=== PATIENT | male | born 1985 | race Caucasian/White ===

== ENCOUNTER 2016-09-30 21:14 | Emergency (ER) | payer OTHER ==
[2016-09-30 21:19] VITALS: BP 139/81; PULSE 97; RESP 20; TEMP 98
--- NOTE | 2016-09-30 21:27 | ED ---
General Adult HPI - General Chief complaint: Extremity Injury, Upper Stated complaint: Right Hand Injury Time Seen by Provider: 09/30/16 21:20 Source: patient, RN notes reviewed Mode of arrival: ambulatory Limitations: no limitations - History of Present Illness Initial comments: This is a 31-year-old male presents with right hand pain 2 days. Patient states 2 days ago he punched a wall and is now having increased pain in the right knuckles and the right wrist. Patient is still able to make a fist but states it is painful. Patient denies any numbness/tingling or weakness. Patient denies any recent fever, chills, shortness breath, chest pain, abdominal pain, nausea/vomiting/diarrhea, back pain, hematuria, headache, or visual changes, or any other complaints. - Related Data Home Medications Medication Instructions Recorded Confirmed No Known Home Medications [No 09/30/16 09/30/16 Known Home Medications] Allergies Allergy/AdvReac Type Severity Reaction Status Date / Time morphine Allergy Anaphylaxis Verified 09/30/16 21:18 Review of Systems ROS Statement: Those systems with pertinent positive or pertinent negative responses have been documented in the HPI. ROS Other: All systems not noted in ROS Statement are negative. Past Medical History Past Medical History: No Reported History History of Any Multi-Drug Resistant Organisms: None Reported Past Surgical History: Adenoidectomy, Appendectomy, Tonsillectomy Past Psychological History: No Psychological Hx Reported Smoking Status: Current every day smoker Past Alcohol Use History: Occasional Past Drug Use History: None Reported General Exam - General Exam Comments Initial Comments: General: The patient is awake and alert, in no distress, and does not appear acutely ill. Neck: The neck is supple, there is no tenderness or JVD. Cardiovascular: There is a regular rate and rhythm. No murmur, rub or gallop is appreciated. Respiratory: Lungs are clear to auscultation, respirations are non-labored, breath sounds are equal. No wheezes, stridor, rales, or rhonchi. Musculoskeletal: There Is tenderness to palpation over the medial aspect of the right wrist on the dorsal side. There is also tenderness to palpation over the ulnar aspect of the right hand over the third fourth and fifth MCP joints and over the distal fifth metacarpal. There are small abrasions to the third fourth and fifth MCP joints. There is mild swelling over the third fourth and fifth MCP joints as well. No erythema, ecchymosis or sign of infection. Full range of motion, strength 5/5 and Sensation intact. Radial pulses 2+ bilaterally. Capillary refill is normal at less than 2 seconds. Neurological: A&O x 3. CN II-XII intact, There are no obvious motor or sensory deficits. Coordination appears grossly intact. Speech is normal. Skin: There are abrasions over the third fourth and fifth MCP joints of the dorsal aspect of the right hand. Skin is warm and dry and no rashes or lesions are noted. Psychiatric: Normal mood and affect. Limitations: no limitations Course Vital Signs 09/30/16 21:17 Temperature 98 F Pulse Rate 97 Respiratory 20 Rate Blood Pressure 139/81 O2 Sat by Pulse 97 Oximetry Medical Decision Making - Medical Decision Making This is a 31-year-old male who presents with right hand pain 2 days after punching a wall. On physical exam There Is tenderness to palpation over the medial aspect of the right wrist on the dorsal side. There is also tenderness to palpation over the ulnar aspect of the right hand over the third fourth and fifth MCP joints and over the distal fifth metacarpal. There are small abrasions to the third fourth and fifth MCP joints. There is mild swelling over the third fourth and fifth MCP joints as well. No erythema, ecchymosis or sign of infection. Full range of motion, strength 5/5 and Sensation intact. Radial pulses 2+ bilaterally. Capillary refill is normal at less than 2 seconds. An x-ray of the right hand and right wrist was done and reviewed showing:X-ray right wrist complete: Normal right wrist. X-ray right hand: Normal right hand. Report read by Dr. Quarles. Discussed results with patient. Discussed rest , ice, elevate and use Wallace wrap for compression. I discussed [id number] Tylenol or Motrin as for any pain. I discussed If symptoms do not improve in the next 7 days repeat x-rays may be needed to rule out occult fracture. I discussed return parameters. Discussed the patient should follow-up with his primary care physician in one to 2 days or return to the [facility] for any worsening symptoms or for any further concerns. Patient was receptive to this plan and patient will be discharged home. Disposition Clinical Impression: Hand contusion Disposition: HOME SELF-CARE Condition: Good Instructions: Hand Sprain (ED) Additional Instructions: Please rest, ice, elevate and use Wallace wrap for compression while up during the day. Please use [id number] Tylenol or Motrin as needed for any pain. If symptoms do not improve in the next 7 days repeat x-rays may be needed to rule out occult fracture. Please follow-up with family doctor in the next 2 days of symptoms have not improved. Please return to emergency room if the symptoms increase or worsen or for any other concerns. Time of Disposition: 22:00
--- NOTE | 2016-09-30 21:47 | XR ---
EXAMINATION TYPE: XR wrist complete RT DATE OF EXAM: 09/30/2016 9:42 PM COMPARISON: NONE HISTORY: Punching injury. Pain. TECHNIQUE: 4 views FINDINGS: I see no fracture nor dislocation. Joint spaces are normal. There are no pathologic calcifi cations. Metacarpals appear intact. IMPRESSION: Normal right wrist.
--- NOTE | 2016-09-30 21:48 | XR ---
EXAMINATION TYPE: XR hand complete RT DATE OF EXAM: 09/30/2016 9:42 PM COMPARISON: NONE HISTORY: Pain and injury TECHNIQUE: 3 views FINDINGS: Metacarpals are intact. I see no fracture nor dislocation. Joint spaces are normal. IMPRESSION: Normal right hand.
== END 2016-09-30 22:10 | disposition home or self-care (01) ==
LOC: EC 21:14
DX: S60.221A Contusion of right hand, initial encounter (principal); W22.01XA Walked into wall, initial encounter; F17.200 Nicotine dependence, unspecified, uncomplicated; Z88.5 Allergy status to narcotic agent
CPT/HCPCS: 99283

== ENCOUNTER 2017-11-18 22:16 | Emergency (ER) | payer BC, OTHER ==
[2017-11-18] MEDS ORDERED: SODIUM CHLORIDE 0.9% 1,000 ML IV STA (22:48)
--- NOTE | 2017-11-18 22:59 | ED ---
Syncope HPI - General Chief Complaint: Syncope Stated Complaint: Syncope Time Seen by Provider: 11/18/17 22:47 Source: patient, RN notes reviewed Mode of arrival: ambulatory Limitations: no limitations - History of Present Illness Initial Comments: This is a 32-year-old male who presents to the emergency department with chief complaint of syncope. Patient states that he had a syncopal episode approximately 30 minutes prior to arrival to the emergency department. Patient states he was standing in his kitchen and suddenly felt warm. He states that he does remember walking to the dining room and feeling like his vision went black. Family members at bedside state that she passed out in the dining room and was unconscious for approximately 30 seconds to a minute. They state that he fell backward and hit his head and walk on the dining room table. Patient states that when he came to he did feel sweaty and nauseous. Currently, patient denies any symptoms. Denies fevers or chills, abdominal pain, nausea or vomiting, diarrhea or constipation, headache or dizziness, numbness or tingling, dysuria or hematuria. Denies any previous episodes of syncope. Patient does admit to using marijuana but denies any other illicit drug use. Patient does state that last year he was told that he has high potassium and he was supposed to follow up with a primary care provider. Patient states that he failed to ever follow-up. Denies any other medical issues or medication use. - Related Data Home Medications Medication Instructions Recorded Confirmed No Known Home Medications [No 09/30/16 09/30/16 Known Home Medications] Allergies Allergy/AdvReac Type Severity Reaction Status Date / Time morphine Allergy Mild Anaphylaxis Verified 11/18/17 22:21 Review of Systems ROS Statement: Those systems with pertinent positive or pertinent negative responses have been documented in the HPI. ROS Other: All systems not noted in ROS Statement are negative. Past Medical History Past Medical History: No Reported History History of Any Multi-Drug Resistant Organisms: None Reported Past Surgical History: Adenoidectomy, Appendectomy, Hernia Repair, Tonsillectomy Past Psychological History: No Psychological Hx Reported Smoking Status: Current every day smoker Past Alcohol Use History: Occasional Past Drug Use History: Marijuana General Exam - General Exam Comments Initial Comments: General: Awake and alert, well-developed; in no apparent distress. HEENT: Head atraumatic, normocephalic. Pupils are equal, round and reactive to light. Extraocular movements intact. Oropharynx moist without erythema or exudate. Neck: Supple. Normal ROM. Cardiovascular: Regular rate and rhythm. No murmurs, rubs or gallops. Chest symmetrical. Radial, pedal and posterior tibial pulses are 2+ equal and palpable bilaterally. Respiratory: Lungs clear to auscultation bilaterally. No wheezes, rales or rhonchi. Normal respiratory effort with no use of accessory muscles. Abdomen: Soft, non-tender, non-distended. No rigidity, rebound or guarding. Normal bowel sounds in all 4 quadrants. Musculoskeletal: Normal ROM, no tenderness, strength 5/5 bilateral upper and lower extremities. Skin: [place], warm and dry without rashes or lesions. Neurological: Alert and oriented x3. CN II-XII grossly intact. Speech is fluent and answers are appropriate. No focal neuro deficits. Psychiatric: Normal mood and affect. No overt signs of depression or anxiety noted. Limitations: no limitations Course Vital Signs 11/18/17 22:19 Temperature 98.3 F Pulse Rate 78 Respiratory 20 Rate Blood Pressure 120/71 O2 Sat by Pulse 100 Oximetry EKG Findings - EKG Comments: EKG Findings:: 22:29:01. Normal sinus rhythm. Ventricular rate 82 bpm, ID interval 146, QRS duration 90, QT/QTC 362/422 Medical Decision Making - Medical Decision Making This is a 32-year-old male who presents to the emergency department with chief complaint of syncope. Patient had a syncopal episode prior to arrival. On presentation, patient denied any symptoms. Denied nausea or vomiting, dizziness or headache, chest pain or shortness of breath. Family members did state that patient fell backwards and hit his head and back on the dining room table. EKG revealed a normal sinus rhythm. Cardiac profile and troponins are negative. CBC, CMP, UA and coags are unremarkable. CT of the brain revealed no acute abnormalities. Orthostatics were obtained and are within normal limits. Drug screen was obtained and patient did test positive for THC. Patient's vital signs are stable and he is in no acute distress. Patient will be discharged home. Recommended follow-up with primary care provider within 1- 2 days. Patient is in agreement with plan and voices understanding. All questions were answered. - Lab Data Result diagrams: 11/18/17 23:06 11/18/17 23:06 Lab Results 11/18/17 11/18/17 11/18/17 Range/Units 23:06 23:06 23:06 WBC 11.5 H (3.8-10.6) k/uL RBC 4.69 (4.30-5.90) m/uL Hgb 14.7 (13.0-17.5) gm/dL Hct 43.8 (39.0-53.0) % MCV 93.5 (80.0-100.0) fL MCH 31.4 (25.0-35.0) pg MCHC 33.6 (31.0-37.0) g/dL RDW 13.2 (11.5-15.5) % Plt Count 298 (150-450) k/uL Neutrophils % 69 % Lymphocytes % 19 % Monocytes % 5 % Eosinophils % 5 % Basophils % 1 % Neutrophils # 8.0 H (1.3-7.7) k/uL Lymphocytes # 2.2 (1.0-4.8) k/uL Monocytes # 0.5 (0-1.0) k/uL Eosinophils # 0.6 (0-0.7) k/uL Basophils # 0.1 (0-0.2) k/uL PT (9.0-12.0) sec INR (<1.2) APTT (22.0-30.0) sec Sodium 141 (137-145) mmol/L Potassium 4.9 (3.5-5.1) mmol/L Chloride 102 (98-107) mmol/L Carbon Dioxide 27 (22-30) mmol/L Anion Gap 12 mmol/L BUN 15 (9-20) mg/dL Creatinine 0.70 (0.66-1.25) mg/dL Est GFR (CKD-EPI)AfAm >90 (>60 ml/min/1.73 sqM) Est GFR (CKD-EPI)NonAf >90 (>60 ml/min/1.73 sqM) Glucose 91 (74-99) mg/dL Calcium 9.6 (8.4-10.2) mg/dL Total Bilirubin 0.6 (0.2-1.3) mg/dL AST 33 (17-59) U/L ALT 46 (21-72) U/L Alkaline Phosphatase 89 (38-126) U/L Total Creatine Kinase 143 (55-170) U/L CK-MB (CK-2) 1.2 (0.0-2.4) ng/mL CK-MB (CK-2) Rel Index 0.8 Troponin I <0.012 (0.000-0.034) ng/mL Total Protein 7.0 (6.3-8.2) g/dL Albumin 4.3 (3.5-5.0) g/dL Urine Color Urine Appearance (Clear) Urine pH (5.0-8.0) Ur Specific [place] (1.001-1.035) Urine Protein (Negative) Urine Glucose (UA) (Negative) Urine Ketones (Negative) Urine Blood (Negative) Urine Nitrite (Negative) Urine Bilirubin (Negative) Urine Urobilinogen (<2.0) mg/dL Ur Leukocyte Esterase (Negative) Urine Opiates Screen (NotDetected) Ur Oxycodone Screen (NotDetected) Urine Methadone Screen (NotDetected) Ur Propoxyphene Screen (NotDetected) Ur Barbiturates Screen (NotDetected) U Tricyclic Antidepress (NotDetected) Ur Phencyclidine Scrn (NotDetected) Ur Amphetamines Screen (NotDetected) U Methamphetamines Scrn (NotDetected) U Benzodiazepines Scrn (NotDetected) Urine Cocaine Screen (NotDetected) U Marijuana (THC) Screen (NotDetected) 11/18/17 11/18/17 Range/Units 23:06 23:45 WBC (3.8-10.6) k/uL RBC (4.30-5.90) m/uL Hgb (13.0-17.5) gm/dL Hct (39.0-53.0) % MCV (80.0-100.0) fL MCH (25.0-35.0) pg MCHC (31.0-37.0) g/dL RDW (11.5-15.5) % Plt Count (150-450) k/uL Neutrophils % % Lymphocytes % % Monocytes % % Eosinophils % % Basophils % % Neutrophils # (1.3-7.7) k/uL Lymphocytes # (1.0-4.8) k/uL Monocytes # (0-1.0) k/uL Eosinophils # (0-0.7) k/uL Basophils # (0-0.2) k/uL PT 9.5 (9.0-12.0) sec INR 1.0 (<1.2) APTT 22.4 (22.0-30.0) sec Sodium (137-145) mmol/L Potassium (3.5-5.1) mmol/L Chloride (98-107) mmol/L Carbon Dioxide (22-30) mmol/L Anion Gap mmol/L BUN (9-20) mg/dL Creatinine (0.66-1.25) mg/dL Est GFR (CKD-EPI)AfAm (>60 ml/min/1.73 sqM) Est GFR (CKD-EPI)NonAf (>60 ml/min/1.73 sqM) Glucose (74-99) mg/dL Calcium (8.4-10.2) mg/dL Total Bilirubin (0.2-1.3) mg/dL AST (17-59) U/L ALT (21-72) U/L Alkaline Phosphatase (38-126) U/L Total Creatine Kinase (55-170) U/L CK-MB (CK-2) (0.0-2.4) ng/mL CK-MB (CK-2) Rel Index Troponin I (0.000-0.034) ng/mL Total Protein (6.3-8.2) g/dL Albumin (3.5-5.0) g/dL Urine Color Light Yellow Urine Appearance Clear (Clear) Urine pH 6.5 (5.0-8.0) Ur Specific [place] 1.006 (1.001-1.035) Urine Protein Negative (Negative) Urine Glucose (UA) Negative (Negative) Urine Ketones Negative (Negative) Urine Blood Negative (Negative) Urine Nitrite Negative (Negative) Urine Bilirubin Negative (Negative) Urine Urobilinogen <2.0 (<2.0) mg/dL Ur Leukocyte Esterase Negative (Negative) Urine Opiates Screen Not Detected (NotDetected) Ur Oxycodone Screen Not Detected (NotDetected) Urine Methadone Screen Not Detected (NotDetected) Ur Propoxyphene Screen Not Detected (NotDetected) Ur Barbiturates Screen Not Detected (NotDetected) U Tricyclic Antidepress Not Detected (NotDetected) Ur Phencyclidine Scrn Not Detected (NotDetected) Ur Amphetamines Screen Not Detected (NotDetected) U Methamphetamines Scrn Not Detected (NotDetected) U Benzodiazepines Scrn Not Detected (NotDetected) Urine Cocaine Screen Not Detected (NotDetected) U Marijuana (THC) Screen Detected H (NotDetected) - Radiology Data Radiology results: report reviewed Chest x-ray impression: Normal chest. CT brain without contrast findings: Ventricles and sulci appear normal. There is no mass effect nor midline shift. There is no sign of intracranial hemorrhage. The calvarium is intact. Conclusion: Normal computed tomography scan of the brain. Disposition Clinical Impression: Syncope Disposition: HOME SELF-CARE Condition: Good Instructions: Syncope (ED) Additional Instructions: Please follow up with primary care provider within 1-2 days. Return to emergency department if symptoms should worsen or any concerns arise. Referrals: Basil Sheridan MD [Primary Care Provider] - 1-2 days Time of Disposition: 00:21
--- NOTE | 2017-11-18 23:24 | XR ---
EXAMINATION TYPE: XR chest 2V DATE OF EXAM: 11/18/2017 COMPARISON: NONE HISTORY: Syncope TECHNIQUE: Frontal and lateral views of the chest are obtained. FINDINGS: Heart and mediastinum are normal. Lungs are clear. Diaphragm is normal. Bony thorax appear s normal. IMPRESSION: Normal chest
[2017-11-18 23:31] LABS: Basophils # (A) 0.1 k/uL (0-0.2); Basophils % (A) 1 %; Eosinophils # (A) 0.6 k/uL (0-0.7); Eosinophils % (A) 5 %; HCT 43.8 % (39.0-53.0); HGB 14.7 gm/dL (13.0-17.5); Lymphocytes # (A) 2.2 k/uL (1.0-4.8); Lymphocytes % (A) 19 %; MCH 31.4 pg (25.0-35.0); MCHC 33.6 g/dL (31.0-37.0); MCV 93.5 fL (80.0-100.0); Mean Platelet Volume 6.5; Monocytes # (A) 0.5 k/uL (0-1.0); Monocytes % (A) 5 %; Neutrophils % (A) 69 %; Platelet Count 298 k/uL (150-450); RBC 4.69 m/uL (4.30-5.90); RDW 13.2 % (11.5-15.5); WBC 11.5 k/uL (3.8-10.6)
[2017-11-18 23:35] LABS: Prothrombin Time 9.5 sec (9.0-12.0)
[2017-11-18 23:39] LABS: ALT 46 U/L (21-72); AST 33 U/L (17-59); Albumin 4.3 g/dL (3.5-5.0); Alkaline Phosphatase 89 U/L (38-126); Anion Gap 12 mmol/L; Blood Urea Nitrogen 15 mg/dL (9-20); Calcium 9.6 mg/dL (8.4-10.2); Carbon Dioxide 27 mmol/L (22-30); Chloride 102 mmol/L (98-107); Glucose 91 mg/dL (74-99); Potassium 4.9 mmol/L (3.5-5.1); Sodium 141 mmol/L (137-145); Total Bilirubin 0.6 mg/dL (0.2-1.3)
[2017-11-18 23:42] LABS: Partial Thromboplastin Time 22.4 sec (22.0-30.0)
[2017-11-18 23:47] LABS: Creatine Kinase 143 U/L (55-170)
--- NOTE | 2017-11-18 23:48 | CT ---
EXAMINATION TYPE: CT brain wo con DATE OF EXAM: 11/18/2017 COMPARISON: NONE HISTORY: No prior, syncope CT DLP: 1047.10 mGycm. Automated Exposure Control for Dose Reduction was Utilized. TECHNIQUE: CT scan of the head is performed without contrast. FINDINGS: Ventricles and sulci appear normal. There is no mass effect nor midline shift. There is n o sign of intracranial hemorrhage. The calvarium is intact. Conclusion normal CT scan of the brain.
[2017-11-18 23:59] LABS: Creatine Kinase MB 1.2 ng/mL (0.0-2.4); Troponin I <0.012 ng/mL (0.000-0.034)
[2017-11-19 00:03] LABS: Appearance,Urine Clear (Clear); Bilirubin,Urine Negative (Negative); Blood,Urine Negative (Negative); Color,Urine Light Yellow; Glucose,Urine (UA) Negative (Negative); Ketones,Urine Negative (Negative); Leukocyte Esterase,Urine Negative (Negative); Nitrite,Urine Negative (Negative); PH, Urine 6.5 (5.0-8.0); Protein,Urine Negative (Negative); Specific Gravity,Urine 1.006 (1.001-1.035); Urobilinogen,Urine <2.0 mg/dL (<2.0)
[2017-11-19 00:18] LABS: Amphetamine Screen,Urine Not Detected (NotDetected); Barbiturate Screen,Urine Not Detected (NotDetected); Benzodiazepines Screen,Urine Not Detected (NotDetected); Cocaine Screen,Urine Not Detected (NotDetected); Methadone Screen, Urine Not Detected (NotDetected); Opiate Screen,Urine Not Detected (NotDetected); Oxycodone Screen, Urine Not Detected (NotDetected); Phencyclidine Screen,Urine Not Detected (NotDetected); Tricyclic Antidepressant,Urine Not Detected (NotDetected); Urn Cannabinoid Scrn Detected (NotDetected)
[2017-11-19 00:20] VITALS: BP 117/60; PULSE 74; RESP 18; TEMP 97.6
== END 2017-11-19 00:32 | disposition home or self-care (01) ==
LOC: EC 22:16
DX: R55 Syncope and collapse (principal); R11.0 Nausea; F17.200 Nicotine dependence, unspecified, uncomplicated; Z88.5 Allergy status to narcotic agent
CPT/HCPCS: 36415; 70450; 71046; 80053; 80306; 81003; 82550; 82553; 84484; 85025; 85610; 85730; 93005; 96360; 99284

== ENCOUNTER → 2019-03-22 | Outpatient (CLI) | payer OTHER ==
--- NOTE | 2019-03-22 12:57 | MR ---
EXAMINATION TYPE: MR brain wo con DATE OF EXAM: 03/22/2019 COMPARISON: CT brain dated 11/18/2017 HISTORY: Syncope TECHNIQUE: Multiplanar, multisequence images of the brain and brainstem is performed without IV contrast. FINDINGS: Diffusion weighted images demonstrate no evidence of a recent infarct or other diffusion ab normality. There is no extra-axial fluid collection or significant white matter signal abnormality. The ventricular system and cisternal spaces are normal in size and appearance. The brain volume is age appropriate. Prominent dural venous incidentally noted along the right temporal lobe on T2 axial fat sat image 11. No associated T2/FLAIR signal abnormality is seen that would be more typical of an arterial venous malformation. This appears to communicate with the venous system at 2 locations. Ther efore this is favored to represent a developmental venous anomaly. Midline structures demonstrate normal morphology. The craniocervical junction appears within normal limits. The paranasal sinuses demonstrate scant mucosal thickening in the right frontal and ethmoid s inuses as well as within the right maxillary sinus. Remaining paranasal sinuses and mastoid air cells are clear and the globes are intact. IMPRESSION: 1. No acute infarct, midline shift or mass effect. No significant white matter change. 2. Incidentally noted right temporal vascular anomaly favored to represent a venous anomaly although contrast could be utilized to assess for arterial venous malformation.
== END | disposition home or self-care (01) ==
LOC: RADMRIMAIN 11:51
PROVIDERS: ATTEND Pediatrics
DX: R55 Syncope and collapse (principal)
CPT/HCPCS: 70551

== ENCOUNTER → 2019-04-15 | Outpatient (CLI) | payer OTHER ==
--- NOTE | 2019-04-17 08:32 | ECHOF ---
Referral Reason:[id number] Syncope MEASUREMENTS -------- HEIGHT: 185.4 cm WEIGHT: 95.7 kg BP: RVIDd: 2.8 cm (< 3.3) IVSd: 1.1 cm (0.6 - 1.1) LVIDd: 4.3 cm (3.9 - 5.3) LVPWd: 1.2 cm (0.6 - 1.1) IVSs: 1.4 cm LVIDs: 3.2 cm LVPWs: 1.6 cm LA Diam: 3.6 cm (2.7 - 3.8) LAESV Index (A-L): 21.91 ml/m Ao Diam: 3.0 cm (2.0 - 3.7) AV Cusp: 2.5 cm (1.5 - 2.6) EPSS: 0.4 cm MV E Efrain: 0.88 m/s MV DecT: 171 ms MV A Efrain: 0.57 m/s MV E/A Ratio: 1.53 RAP: 5.00 mmHg RVSP: 20.45 mmHg MV EF SLOPE: 149.47 mm/s (70 - 150) MV EXCURSION: 1.94 cm (> 18.000) FINDINGS -------- Sinus rhythm. This was a technically good study. The left ventricular size is normal. There is borderline concentric left ventricular hypertrophy. Overall left ventricular systolic function is normal with, an EF between 60 - 65 %. The right ventricle is normal in size. Left atrium is normal size by volume. The right atrium is normal in size and function. The aortic valve is trileaflet and appears structurally normal. There is trace to mild mitral regurgitation. Mild tricuspid regurgitation present. Right ventricular systolic pressure is normal at < 35 mmHg. There is no pulmonic regurgitation present. The aortic root size is normal. Normal inferior vena cava with normal inspiratory collapse consistent with estimated right atrial pre ssure of 5 mmHg. There is no pericardial effusion. CONCLUSIONS -------- 1. Sinus rhythm. 2. This was a technically good study. 3. The left ventricular size is normal. 4. There is borderline concentric left ventricular hypertrophy. 5. Overall left ventricular systolic function is normal with, an EF between 60 - 65 %. 6. The right ventricle is normal in size. 7. Left atrium is normal size by volume. 8. The right atrium is normal in size and function. 9. The aortic valve is trileaflet and appears structurally normal. 10. There is trace to mild mitral regurgitation. 11. Mild tricuspid regurgitation present. 12. Right ventricular systolic pressure is normal at < 35 mmHg. 13. There is no pulmonic regurgitation present. 14. The aortic root size is normal. 15. Normal inferior vena cava with normal inspiratory collapse consistent with estimated right atrial pressure of 5 mmHg. 16. There is no pericardial effusion. MAJOR CASE DETECTIVE: Naomi Finley RDCS
== END | disposition home or self-care (01) ==
LOC: RADECHMAIN 12:36
PROVIDERS: ATTEND Pediatrics
DX: I08.1 Rheumatic disorders of both mitral and tricuspid valves (principal)
CPT/HCPCS: 93306

== ENCOUNTER → 2019-04-24 | Outpatient (CLI) | payer OTHER ==
--- NOTE | 2019-04-25 00:31 | MR ---
EXAMINATION TYPE: MR brain wo/w con DATE OF EXAM: 04/24/2019 COMPARISON: March 22, 2019 HISTORY: Abnormal brain mri in 2018. Contrast was recommended. TECHNIQUE: Multiplanar, multisequence images of the brain and brainstem is performed without and with IV contras t, utilizing 10 mL intravenous Gadavist . FINDINGS: Ventricles of normal size. There is no mass effect nor midline shift. There is no sign of i ntracranial hemorrhage. There is no evidence of cortical infarct. There is some mucosal thickening in the ethmoid and frontal sinuses. There is minimal right maxillary sinus mucosal thickening. Corpus c allosum appears normal. Brainstem is intact. There is no evidence of cerebral edema. Contrast images show normal opacification of the venous sinuses. There is no pathologic enhancement. There is normal enhancement of the anterior middle and posterior cerebral arteries. There is no evide nce of vascular malformation. IMPRESSION: There is minimal sinusitis unchanged compared to old exam. Otherwise negative exam. No ev idence of vascular malformation.
== END | disposition home or self-care (01) ==
LOC: RADMRIMAIN 19:56
PROVIDERS: ATTEND Physician Assistant
DX: R93.0 Abnormal findings on diagnostic imaging of skull and head, not elsewhere classified (principal)
CPT/HCPCS: 70553; A9585

== ENCOUNTER 2020-04-28 19:35 | Emergency (ER) | payer OTHER ==
[2020-04-28 19:43] VITALS: BP 152/94; PULSE 77; TEMP 98.6
[2020-04-28] MEDS ORDERED: KETOROLAC 15 MG/ML 1 ML VIAL IM STA (20:03)
--- NOTE | 2020-04-28 21:18 | XR ---
EXAMINATION TYPE: XR lumbosacral spine min 4V DATE OF EXAM: 04/28/2020 COMPARISON: None HISTORY: Pain after falling out of pickup truck TECHNIQUE: Five-view lumbar spine FINDINGS: There 5 lumbar-type vertebral bodies. The pedicles are intact. Disc heights are preserved. Vertebral body heights are preserved. No spondylolytic defects are evident. IMPRESSION: 1. Normal 5 view lumbar spine.
[2020-04-28] MEDS ORDERED: ACET/COD 300 MG/30 MG STARTER PACK 6 TAB BTL PO STA (21:36)
[2020-04-28] MEDS ORDERED: ONDANSETRON 4 MG ODT STARTER PACK 2 TAB BTL PO STA (21:36)
--- NOTE | 2020-04-28 21:36 | ED ---
General Adult HPI - General Chief complaint: Back Pain/Injury Stated complaint: Back Injury Time Seen by Provider: 04/28/20 19:47 Source: patient, RN notes reviewed Mode of arrival: ambulatory Limitations: no limitations - History of Present Illness Initial comments: 35-year-old male without any significant past medical history presents to the emergency room for a chief complaint of back pain. Patient reports that yesterday he was unloading wood from his truck when he fell backwards onto his low back. Patient states he is having pain on the lower right side of the back. Denies upper back pain. Patient states he does hit his head but it was not hard and he did not lose consciousness. He does not take blood thinners. He has not had a headache or neck pain. Patient states movement makes the pain worse in his back. States he took Motrin and it did not help. Denies bladder or bowel changes, numbness or tingling in the saddle region, or weakness of the lower extremities. Denies any difficulty ambulating.Patient has no other complaints at this time including shortness of breath, chest pain, abdominal pain, nausea or vomiting, headache, or visual changes. - Related Data Home Medications Medication Instructions Recorded Confirmed No Known Home Medications 09/30/16 09/30/16 Allergies Allergy/AdvReac Type Severity Reaction Status Date / Time morphine Allergy Mild Anaphylaxis Verified 04/28/20 19:42 Review of Systems ROS Statement: Those systems with pertinent positive or pertinent negative responses have been documented in the HPI. ROS Other: All systems not noted in ROS Statement are negative. Past Medical History Past Medical History: No Reported History History of Any Multi-Drug Resistant Organisms: None Reported Past Surgical History: Adenoidectomy, Appendectomy, Hernia Repair, Tonsillectomy Past Psychological History: No Psychological Hx Reported Smoking Status: Current every day smoker Past Alcohol Use History: Occasional Past Drug Use History: Marijuana General Exam Limitations: no limitations General appearance: alert, in no apparent distress Head exam: Present: atraumatic, normocephalic, normal inspection Eye exam: Present: normal appearance, PERRL, EOMI. Absent: scleral icterus, conjunctival injection, periorbital swelling ENT exam: Present: normal exam, mucous membranes moist Neck exam: Present: normal inspection. Absent: tenderness, meningismus, lymphadenopathy Respiratory exam: Present: normal lung sounds bilaterally. Absent: respiratory distress, wheezes, rales, rhonchi, stridor Cardiovascular Exam: Present: regular rate, normal rhythm, normal heart sounds. Absent: systolic murmur, diastolic murmur, rubs, gallop, clicks GI/Abdominal exam: Present: soft, normal bowel sounds. Absent: distended, tenderness, guarding, rebound, rigid Back exam: Present: vertebral tenderness (Patient has generalized lumbar spine tenderness. No significant bruising is noted to the lumbar spine. He does have some bruising noted to the left low back however no bruising noted to the right low back.). Absent: CVA tenderness (R), CVA tenderness (L) Neurological exam: Present: normal gait Course Vital Signs 04/28/20 04/28/20 19:40 21:40 Temperature 98.6 F Pulse Rate 77 Respiratory 17 16 Rate Blood Pressure 152/94 O2 Sat by Pulse 98 Oximetry Medical Decision Making - Medical Decision Making X-ray is negative of the lumbar spine. Patient was given Toradol here in the emergency room. At this time patient can be discharged home with Motrin and Tylenol 3. Discussed no driving or operating machinery while taking Tylenol 3. He was given Zofran with this for possible nausea. He will return for any worsening symptoms. He was given follow-up to a physician. Disposition Clinical Impression: Mechanical back pain Disposition: HOME SELF-CARE Condition: Good Instructions (If sedation given, give patient instructions): Acute Low Back Pa in (ED) Additional Instructions: Please alternate Motrin and Tylenol for pain every 3 hours. If pain is severe take Tylenol 3. Follow up with your doctor. Return for any worsening symptoms such as bladder or bowel changes, numbness or tingling in your legs, weakness in the legs, or fevers. Is patient prescribed a controlled substance at d/c from ED?: No Referrals: Ivon Liriano MD [REFERRING] - 1-2 days Time of Disposition: 21:35
[2020-04-28 21:45] VITALS: RESP 16
== END 2020-04-28 21:40 | disposition home or self-care (01) ==
LOC: EC 19:35
DX: S39.92XA Unspecified injury of lower back, initial encounter (principal); M54.5 Low back pain; F17.200 Nicotine dependence, unspecified, uncomplicated; Z88.5 Allergy status to narcotic agent; W18.00XA Striking against unspecified object with subsequent fall, initial encounter
CPT/HCPCS: 99283 ×2; 96372 ×2; 72110; J1885; S0119

== ENCOUNTER 2021-06-14 12:42 | Emergency (ER) | payer OTHER ==
[2021-06-14 14:45] VITALS: TEMP 97.6
--- NOTE | 2021-06-14 14:45 | ED ---
General Adult HPI - General Source: patient <Baljinder Nicole - Last Filed: 06/14/21 14:42> <Domingo Slater - Last Filed: 06/14/21 16:53> - General Chief complaint: Back Pain/Injury Stated complaint: back pain Time Seen by Provider: 06/14/21 15:58 - History of Present Illness Initial comments: Patient seen for advanced triage purposes: 36-year-old male presents to the emergency room for a chief complaint of back pain. Patient states the pain is lower in his back. Patient states it worsens when he stands or when he sits. Patient states lying down alleviates the pain. Patient states he felt his back "the other day when he got up and has been hurting ever since. (Baljinder Nicole) This is a well-appearing 36-year-old male that presents to the emergency room with low back pain. Patient states that he was getting out of bed Monday when he felt a pop in his lower back. He states he did not do any didn't injure himself. He has not had this type of pain in the past. He states that the pain shoots down his left leg. He is a half pack a day smoker. Does have a history of appendectomy and hernia repair surgery. He denies any saddle anesthesia. Denies any fevers nausea or vomiting or diarrhea. Denies any drug use. (Domingo Slater) - Related Data Previous Rx's Medication Instructions Recorded Cyclobenzaprine [Flexeril] 10 mg PO TID PRN #15 tab 06/14/21 Ibuprofen [Motrin] 600 mg PO Q8HR PRN #30 tab 06/14/21 Lidocaine 5% Patch [Lidoderm] 1 patch TOPICAL DAILY 10 Days #10 06/14/21 patch Allergies Allergy/AdvReac Type Severity Reaction Status Date / Time morphine Allergy Mild Anaphylaxis Verified 06/14/21 14:43 Review of Systems ROS Other: All systems not noted in ROS Statement are negative. <Baljinder Nicole - Last Filed: 06/14/21 14:42> ROS Other: All systems not noted in ROS Statement are negative. <Domingo Slater - Last Filed: 06/14/21 16:53> ROS Statement: Those systems with pertinent positive or pertinent negative responses have been documented in the HPI. Past Medical History Past Medical History: No Reported History History of Any Multi-Drug Resistant Organisms: None Reported Past Surgical History: Adenoidectomy, Appendectomy, Hernia Repair, Tonsillectomy Past Psychological History: No Psychological Hx Reported Smoking Status: Current every day smoker Past Alcohol Use History: Occasional Past Drug Use History: Marijuana <BonnieBaljinder P - Last Filed: 06/14/21 14:42> General Exam General appearance: alert, in no apparent distress Head exam: Present: atraumatic Neurological exam: Present: alert <BonnieBaljinder P - Last Filed: 06/14/21 14:42> General appearance: alert, in no apparent distress Eye exam: Present: normal appearance, PERRL, EOMI. Absent: scleral icterus, conjunctival injection, periorbital swelling Neck exam: Present: normal inspection, full ROM. Absent: tenderness, meningismus, lymphadenopathy Respiratory exam: Present: normal lung sounds bilaterally, other (coarse). Absent: respiratory distress, wheezes, stridor, chest wall tenderness, accessory muscle use Cardiovascular Exam: Present: regular rate, normal rhythm, normal heart sounds. Absent: systolic murmur, diastolic murmur, rubs, gallop, clicks GI/Abdominal exam: Present: soft, normal bowel sounds. Absent: distended, tenderness, guarding, rebound, rigid Extremities exam: Present: normal inspection, full ROM, normal capillary refill. Absent: tenderness, pedal edema, joint swelling, calf tenderness Back exam: Present: normal inspection, full ROM, tenderness (Lumbar spine), paraspinal tenderness. Absent: CVA tenderness (R), CVA tenderness (L), vertebral tenderness, rash noted Expanded Back exam: Absent: saddle anesthesia Back exam: Positive Straight Leg Raise: Left, Negative Straight Leg Raising: Right Neurological exam: Present: alert, oriented X3 Psychiatric exam: Present: normal affect, normal mood Skin exam: Present: warm, dry, intact, normal color. Absent: rash <Domingo Slater - Last Filed: 06/14/21 16:53> Course Vital Signs 06/14/21 06/14/21 14:43 15:08 Temperature 97.6 F Pulse Rate 75 73 Respiratory 18 20 Rate Blood Pressure 103/62 124/63 O2 Sat by Pulse 99 99 Oximetry Medical Decision Making <Domingo Slater - Last Filed: 06/14/21 16:53> - Medical Decision Making Patient states that he starting to feel better and he wants to go home. He has no focal neurological deficits. This pain is not as a result of an injury. He has no focal neurological deficits. He does not have any fevers or history of steroid use. He is a smoker but he denies any alcohol or intravenous drug use. He has no history of cancer. He was discharged home with Flexeril, Motrin and Lidoderm patches and return to the emergency room with any new or worsening symptoms. Case discussed with Dr. Markham was agreeable to this plan of care. (Domingo Slater) Disposition <Baljinder Nicole - Last Filed: 06/14/21 14:42> Is patient prescribed a controlled substance at d/c from ED?: No Time of Disposition: 16:49 <Domingo Slater - Last Filed: 06/14/21 16:53> Clinical Impression: Back pain Disposition: HOME SELF-CARE Condition: Good Instructions (If sedation given, give patient instructions): Acute Low Back Pain (ED) Additional Instructions: Take Motrin and Flexeril as needed for pain and follow-up with your primary care doctor in 1 week. Return to the emergency room with any new or worsening symptoms including incontinence of bowel or bladder or numbness on one side. Prescriptions: Cyclobenzaprine [Flexeril] 10 mg PO TID PRN #15 tab PRN Reason: Muscle Spasm Lidocaine 5% Patch [Lidoderm] 1 patch TOPICAL DAILY 10 Days #10 patch Ibuprofen [Motrin] 600 mg PO Q8HR PRN #30 tab PRN Reason: Pain Referrals: Ivon Liriano MD [Primary Care Provider] - 1-2 days
[2021-06-14 15:10] VITALS: BP 124/63; PULSE 73; RESP 20
[2021-06-14] MEDS ORDERED: ORPHENADRINE 30 MG/ML 2 ML VIAL IM STA (16:04)
[2021-06-14] MEDS ORDERED: HYDROcodone/APAP 5-325MG 1 EACH TAB PO STA (16:04)
== END 2021-06-14 17:06 | disposition home or self-care (01) ==
LOC: EC 12:42
DX: M54.50 Low back pain, unspecified (principal); F17.200 Nicotine dependence, unspecified, uncomplicated; Z88.5 Allergy status to narcotic agent; X58.XXXA Exposure to other specified factors, initial encounter
CPT/HCPCS: 96372 ×2; 99283 ×2; J2360

== ENCOUNTER 2022-05-08 18:54 | Emergency (ER) | payer OTHER ==
[2022-05-08 19:16] VITALS: RESP 16; TEMP 98.1
[2022-05-08] MEDS ORDERED: METOCLOPRAMIDE 5 MG/ML 2 ML VIAL IM STA (20:03)
[2022-05-08] MEDS ORDERED: diphenhydrAMINE 50 MG/ML 1 ML VIAL IM STA (20:04)
[2022-05-08] MEDS ORDERED: KETOROLAC 15 MG/ML 1 ML VIAL IM STA (20:04)
--- NOTE | 2022-05-08 20:10 | ED ---
Headache HPI - General Chief Complaint: Headache Stated Complaint: migrane Time Seen by Provider: 05/08/22 20:00 Source: RN notes reviewed Mode of arrival: ambulatory Limitations: no limitations - History of Present Illness Initial Comments: Patient presents with what he is referring to is a migraine headache which isn't present for 2 days. Patient does get headaches but has not had a bad one about one year. This is consistent with what is felt previously. Describes a throbbing headache across his forehead. He states it started 2 days ago and was quite mild at that time. Patient has tried [id number] medications with no relief. No fever. No neck stiffness. No paresthesias. No vision complaints. Has had some nausea with no vomiting. No upper respiratory symptoms. no fever or chills, no changes in vision or hearing, no sore throat or difficulty with speech, no neck pain, no chest pain or shortness of breath, no abdominal pain, no nausea or vomiting, no changes in urination or bowel movements, no numbness or tingling, no extremity pain, no skin rashes or lesions. Past medical, surgical, social, and family history reviewed. MD Complaint: headache - Related Data Previous Rx's Medication Instructions Recorded Cyclobenzaprine [Flexeril] 10 mg PO TID PRN #15 tab 06/14/21 Ibuprofen [Motrin] 600 mg PO Q8HR PRN #30 tab 06/14/21 Lidocaine 5% Patch [Lidoderm] 1 patch TOPICAL DAILY 10 Days #10 06/14/21 patch Allergies Allergy/AdvReac Type Severity Reaction Status Date / Time morphine Allergy Mild Anaphylaxis Verified 06/14/21 14:43 codeine Allergy Unknown Verified 05/08/22 19:16 Review of Systems ROS Statement: Those systems with pertinent positive or pertinent negative responses have been documented in the HPI. ROS Other: All systems not noted in ROS Statement are negative. Past Medical History Past Medical History: No Reported History History of Any Multi-Drug Resistant Organisms: None Reported Past Surgical History: Adenoidectomy, Appendectomy, Hernia Repair, Tonsillectomy Past Psychological History: No Psychological Hx Reported Smoking Status: Current every day smoker Past Alcohol Use History: Occasional Past Drug Use History: Marijuana General Exam Limitations: no limitations General appearance: alert, in no apparent distress Head exam: Present: atraumatic, normocephalic, normal inspection Eye exam: Present: normal appearance, PERRL, EOMI. Absent: scleral icterus, conjunctival injection, periorbital swelling ENT exam: Present: normal exam, mucous membranes moist Neck exam: Present: normal inspection. Absent: tenderness, meningismus, lymphadenopathy Respiratory exam: Present: normal lung sounds bilaterally. Absent: respiratory distress, wheezes, rales, rhonchi, stridor Cardiovascular Exam: Present: regular rate, normal rhythm, normal heart sounds. Absent: systolic murmur, diastolic murmur, rubs, gallop, clicks GI/Abdominal exam: Present: soft, normal bowel sounds. Absent: distended, tenderness, guarding, rebound, rigid Extremities exam: Present: normal inspection, full ROM, normal capillary refill. Absent: tenderness, pedal edema, joint swelling, calf tenderness Back exam: Present: normal inspection Neurological exam: Present: alert, oriented X3, CN II-XII intact Psychiatric exam: Present: normal affect, normal mood Skin exam: Present: warm, dry, intact, normal color. Absent: rash Course Vital Signs 05/08/22 19:14 Temperature 98.1 F Pulse Rate 72 Respiratory 16 Rate Blood Pressure 127/70 O2 Sat by Pulse 95 Oximetry - Reevaluation(s) Reevaluation #1: 05/08/22 22:39 Medical record is reviewed Symptoms are improved here in the emergency department Patient is informed of results and questions answered Patient in no distress Medical Decision Making - Medical Decision Making Patient improved at discharge. No evidence of neurological impairment or nuchal rigidity. Does not appear to be consistent with infectious process. This headache is consistent with what the patient has experienced in the past. Patient requesting a note for work today. Patient was much improved at the time of discharge. Patient was told to return to the ER for any signs or symptoms worsen. Told to return immediately if any other problems arise. All questions answered. Treatment plan discussed. Patient in agreement Every effort has been made to ensure accuracy of this dictation. However, due to the limitations of electronic medical records and dictation devices, errors in charting still occur. [employer] Picture [employer] Worker Dr. Santana Disposition Clinical Impression: Acute headache Disposition: HOME SELF-CARE Condition: Good Instructions (If sedation given, give patient instructions): Acute Headache (ED) Additional Instructions: Follow-up with your regular physician as directed. Return to the ER immediately if any symptoms worsen, new symptoms arise, or any other problems develop. Is patient prescribed a controlled substance at d/c from ED?: No Referrals: Ivon Liriano MD [REFERRING] - 1-2 days Time of Disposition: 22:39
[2022-05-08 22:57] VITALS: BP 120/78; PULSE 88
== END 2022-05-08 22:56 | disposition home or self-care (01) ==
LOC: EC 18:54
DX: R51.9 Headache, unspecified (principal); F17.200 Nicotine dependence, unspecified, uncomplicated; Z88.5 Allergy status to narcotic agent
CPT/HCPCS: 99283; 96372; J1200; J2765; J1885

== ENCOUNTER 2022-09-20 17:10 | Emergency (ER) | payer OTHER ==
[2022-09-20 17:58] VITALS: RESP 16; TEMP 96.8
[2022-09-20] MEDS ORDERED: KETOROLAC 15 MG/ML 1 ML VIAL IM STA (19:50)
[2022-09-20] MEDS ORDERED: LIDOCAINE 5% PATCH TOPICAL SCH (19:50)
--- NOTE | 2022-09-20 20:15 | ED ---
Fall HPI - General Chief Complaint: Fall Stated Complaint: post fall - back pain Time Seen by Provider: 09/20/22 19:46 Source: patient, RN notes reviewed Mode of arrival: ambulatory - History of Present Illness Initial Comments: This is a 37-year-old male who presents to the emergency department for abdominal and back pain. States that a week ago, he fell from an 8 foot ladder after slipping off of the top step. He went to [facility] and had a computed tomography scan. He was told that he had bruised ribs and otherwise no acute irregularities. He was given a prescription for Norflex, which he states has not offered any improvement to his symptoms. States that he is scheduled to return to work tomorrow, but does not believe that he can handle that due to the pain. Denies any fevers, chills, sore throat, cough, dyspnea, chest pain, palpitations, nausea, vomiting, diarrhea, or headaches. MD Complaint: fall Onset/Timin -: week(s) Fall From: standing Context: tripped/slipped - Related Data Previous Rx's Medication Instructions Recorded Cyclobenzaprine [Flexeril] 10 mg PO TID PRN #15 tab 06/14/21 Ibuprofen [Motrin] 600 mg PO Q8HR PRN #30 tab 06/14/21 Lidocaine 5% Patch [Lidoderm] 1 patch TOPICAL DAILY 10 Days #10 06/14/21 patch HYDROcodone/APAP 5-325MG [[place] 1 tab PO Q6HR PRN 3 Days #12 tab 09/20/22 5-325] Ketorolac [Toradol] 10 mg PO Q6HR PRN #12 tab 09/20/22 Lidocaine 5% Patch [Lidoderm] 1 patch TOPICAL DAILY PRN #30 patch 09/20/22 Allergies Allergy/AdvReac Type Severity Reaction Status Date / Time morphine Allergy Mild Anaphylaxis Verified 09/20/22 17:58 codeine Allergy Unknown Verified 09/20/22 17:58 Review of Systems ROS Statement: Those systems with pertinent positive or pertinent negative responses have been documented in the HPI. ROS Other: All systems not noted in ROS Statement are negative. Past Medical History Past Medical History: No Reported History History of Any Multi-Drug Resistant Organisms: None Reported Past Surgical History: Adenoidectomy, Appendectomy, Hernia Repair, Tonsillectomy Past Psychological History: No Psychological Hx Reported Smoking Status: Current every day smoker Past Alcohol Use History: Occasional Past Drug Use History: Marijuana General Exam Limitations: no limitations General appearance: alert, in distress Head exam: Present: atraumatic, normocephalic, normal inspection Respiratory exam: Present: normal lung sounds bilaterally. Absent: respiratory distress, wheezes, rales, rhonchi, stridor Cardiovascular Exam: Present: regular rate, normal rhythm, normal heart sounds. Absent: systolic murmur, diastolic murmur, rubs, gallop, clicks GI/Abdominal exam: Present: soft, tenderness (Midabdomen), normal bowel sounds. Absent: distended Neurological exam: Present: alert, oriented X3, CN II-XII intact Psychiatric exam: Present: normal affect, normal mood Skin exam: Present: warm, dry, intact, normal color. Absent: rash Course Vital Signs 09/20/22 09/20/22 17:56 20:25 Temperature 96.8 F L Pulse Rate 79 67 Respiratory 16 16 Rate Blood Pressure 124/75 117/83 O2 Sat by Pulse 98 97 Oximetry Medical Decision Making - Medical Decision Making This is a 37-year-old male who presents to the emergency department for back pain after a fall. Was pt. sent in by a medical professional or institution? @ -No Did you speak to anyone other than the patient for history? @ -No Did you review nursing and triage notes? @ -Yes, and I agree, it is accurate with regards to the patient's symptoms. Were old charts reviewed? @ -No Differential Diagnosis? @ -Differential Back Pain: Strain, zoster, cauda equina syndrome, epidural abscess, vertebral osteomyelitis, discitis, fracture, subluxation, disc herniation, DJD, spinal stenosis, dissection, AAA, pancreatitis, peptic ulcer disease, pyelonephritis, kidney stone, this is not meant to be an all-inclusive list. CT interpreted by me (1pt min.)? @ -Computed tomography scan of the abdomen and pelvis as well as thoracic/lumbar spine obtained. My interpretation of the abdomen and pelvis CT identifies no evidence of free air or bowel wall thickening. My interpretation of the thoracic/lumbar spine CT identifies no acute fractures. What testing was considered but not performed? (CT, X-rays, U/S, labs)? Why? @ -None What meds were considered but not given? Why? @ -None Did you discuss the management of the patient with other professionals? @ -No Did you reconcile home meds? @ -No Was smoking cessation discussed for >3mins.? @ -No Was critical care preformed (if so, how long)? @ -No Were there social determinants of health that impacted care today? How? (Homelessness, low income, unemployed, alcoholism, drug addiction, transportation, low edu. Level, literacy, decrease access to med. care, [facility], rehab)? @ -No Was there de-escalation of care discussed even if they declined? (Discuss DNR or withdrawal of care, Hospice)? @ -No What co-morbidities impacted this encounter? (DM, HTN, Smoking, COPD, CAD, Cancer, CVA, Hep., AIDS, mental health diagnosis, sleep apnea, morbid obesity)? @ -None Was patient admitted / discharged? @ -Discharged. Computed tomography scan of the abdomen/pelvis and thoracic/lumbar spine obtained, all revealing no acute irregularities. Advised the patient that he does likely have a lot of bruising, and it will likely take weeks for him to completely heal and feel better. Prescriptions for Toradol, [place], and lidocaine patches provided with dosing instructions reviewed. Advised to alternate with Toradol and Tylenol and avoid any asdr-efp-xxktlpa anti-inflammatories such as ibuprofen with the Toradol. He is also advised to take the [place] very sparingly when his pain is the most severe and to avoid driving or operating machinery when taking this. Advised alternating with ice and heat, whichever one he finds more beneficial. Undiagnosed new problem with uncertain prognosis? @ -None Drug Therapy requiring intensive monitoring for toxicity (Heparin, Nitro, Insulin, Cardizem)? @ -None Were any procedures done? @ -None Diagnosis/symptom? @ -Fall Acute, or Chronic, or Acute on Chronic? @ -Acute Uncomplicated (without systemic symptoms) or Complicated (systemic symptoms)? @ -Complicated Side effects of treatment? @ -None Exacerbation, Progression, or Severe Exacerbation] @ -Not applicable Poses a threat to life or bodily function? @ -No Diagnosis/symptom? @ -Lower back pain Acute, or Chronic, or Acute on Chronic? @ -Acute Uncomplicated (without systemic symptoms) or Complicated (systemic symptoms)? @ -Uncomplicated Side effects of treatment? @ -None Exacerbation, Progression, or Severe Exacerbation] @ -Progression Poses a threat to life or bodily function? @ -Yes, the pain is making it difficult for him to function. Return precautions reviewed in depth, the patient is instructed to return to the emergency department with any new, worsening, or concerning symptoms. Patient verbalized understanding. This case was discussed in detail with the attending ED physician, Dr. Luna. Presentation, findings, and treatment plan discussed in detail as well. - Radiology Data Radiology results: report reviewed, image reviewed Disposition Clinical Impression: Fall, Lower back pain Disposition: HOME SELF-CARE Instructions (If sedation given, give patient instructions): Back Pain (ED) Additional Instructions: Return to the emergency department with any new, worsening, or concerning symptoms. Alternate with the Toradol and Tylenol for pain relief. If you choose to take the Toradol, do not take other vzva-azf-eglkxkn anti-in flammatories such as ibuprofen when taking it. Take the [place] sparingly when your pain is the most severe. Apply warm moist heat to the painful areas as well. Follow up with your primary care provider in 1-2 days. Prescriptions: Lidocaine 5% Patch [Lidoderm] 1 patch TOPICAL DAILY PRN #30 patch PRN Reason: Pain HYDROcodone/APAP 5-325MG [[place] 5-325] 1 tab PO Q6HR PRN 3 Days #12 tab PRN Reason: Pain Ketorolac [Toradol] 10 mg PO Q6HR PRN #12 tab PRN Reason: Pain Is patient prescribed a controlled substance at d/c from ED?: Yes When asked, does pt state using other controlled substances?: No If prescribed controlled substance>3 days was MAPS reviewed?: Prescribed <3 Days Referrals: None,Stated [Primary Care Provider] - 1-2 days
--- NOTE | 2022-09-20 20:17 | CT ---
EXAMINATION TYPE: CT abdomen pelvis wo con DATE OF EXAM: 09/20/2022 COMPARISON: none HISTORY: Progressive abd and back pain after fall Scanned by ABC. CT DLP: 1389.6 mGycm Examination of the solid and hollow viscera is limited given the lack of contrast. FINDINGS: LUNG BASES: No evidence for nodule. No evidence for infiltrate. LIVER/GB: The gallbladder is unremarkable. No space-occupying hepatic lesion. PANCREAS: No pancreatic mass identified. No inflammatory process seen. SPLEEN: No evidence for splenomegaly. No intrasplenic lesions seen. ADRENALS: No adrenal nodules identified. No evidence for thickening. KIDNEYS: No evidence for renal mass. No nephrolithiasis. No hydronephrosis. BOWEL: Appendix has a normal appearance. No evidence of bowel obstruction. No inflammatory process. Lymph nodes: No evidence for adenopathy greater than 1 cm. Abdominal aorta: Atheromatous changes seen. No evidence for aneurysm. Genital organs: No significant abnormality. Other: No significant abnormality. IMPRESSION: Unremarkable study
--- NOTE | 2022-09-20 20:25 | CT ---
EXAMINATION TYPE: CT thor lumbar spine wo con DATE OF EXAM: 09/20/2022 COMPARISON: None HISTORY: Progressive abd and back pain after fall Scanned by ABC. CT DLP: 1389.[address] of the thoracic and lumbar spine was performed. Bone and soft tissue window settings a re submitted as well as coronal and sagittal reconstructions. thoracic spine: No fracture or malalignment. L1-L2: Normal disc space height. No disc herniation protrusion or central stenosis. No facet joint arthropathy. No evidence for foraminal encroachment. L2-L3: Normal disc space height. No disc herniation protrusion or central stenosis. No facet joint arthropathy. No evidence for foraminal encroachment. L3-L4: Normal disc space height. No disc herniation protrusion or central stenosis. No facet joint arthropathy. No evidence for foraminal encroachment. L4-L5: Normal disc space height. No disc herniation protrusion or central stenosis. No facet joint arthropathy. No evidence for foraminal encroachment. L5-S1: Normal disc space height. No disc herniation protrusion or central stenosis. No facet joint arthropathy. No evidence for foraminal encroachment. No paraspinal masses are identified. Lumbar segments are free if fracture. IMPRESSION: 1. No evidence for thoracic or lumbar fracture
[2022-09-20 20:26] VITALS: BP 117/83; PULSE 67
[2022-09-20] MEDS ORDERED: HYDROcodone/APAP 5-325MG 1 EACH TAB PO STA (21:00)
== END 2022-09-20 21:15 | disposition home or self-care (01) ==
LOC: EC 17:10
DX: M54.50 Low back pain, unspecified (principal); F17.200 Nicotine dependence, unspecified, uncomplicated; F12.90 Cannabis use, unspecified, uncomplicated; Z88.5 Allergy status to narcotic agent; W01.0XXA Fall on same level from slipping, tripping and stumbling without subsequent striking against object, initial encounter
CPT/HCPCS: 72128; 72131; 74176; 99284; 96372; J1885

== ENCOUNTER 2024-10-24 16:47 | Emergency (ER) | payer SELFPAY ==
[2024-10-24 16:58] VITALS: TEMP 98
--- NOTE | 2024-10-24 17:32 | ED ---
Wound/Laceration HPI - General Chief Complaint: Wound/Laceration Stated Complaint: R hand lac Time Seen by Provider: 10/24/24 16:59 Source: patient Mode of arrival: ambulatory Limitations: no limitations - History of Present Illness Initial Comments: 39-year-old male presenting with chief complaint of laceration to the right hand. He obtained this laceration while working on his car this afternoon. This is a 4 cm laceration to the dorsal surface of the hand. He still has full range of motion and sensation. He is unsure when his last tetanus shot was. - Related Data Previous Rx's Medication Instructions Recorded Cyclobenzaprine [Flexeril] 10 mg PO TID PRN #15 tab 06/14/21 Ibuprofen [Motrin] 600 mg PO Q8HR PRN #30 tab 06/14/21 Lidocaine 5% Patch [Lidoderm] 1 patch TOPICAL DAILY 10 Days #10 06/14/21 patch HYDROcodone/APAP 5-325MG [[place] 1 tab PO Q6HR PRN 3 Days #12 tab 09/20/22 5-325] Ketorolac [Toradol] 10 mg PO Q6HR PRN #12 tab 09/20/22 Lidocaine 5% Patch [Lidoderm] 1 patch TOPICAL DAILY PRN #30 patch 09/20/22 Cephalexin [Keflex] 500 mg PO Q12HR 7 Days #14 cap 10/24/24 Allergies Allergy/AdvReac Type Severity Reaction Status Date / Time morphine Allergy Mild Anaphylaxis Verified 09/20/22 17:58 codeine Allergy Unknown Verified 09/20/22 17:58 Review of Systems ROS Statement: Those systems with pertinent positive or pertinent negative responses have been documented in the HPI. ROS Other: All systems not noted in ROS Statement are negative. Past Medical History Past Medical History: No Reported History History of Any Multi-Drug Resistant Organisms: None Reported Past Surgical History: Adenoidectomy, Appendectomy, Hernia Repair, Tonsillectomy Past Psychological History: No Psychological Hx Reported Smoking Status: Current every day smoker Past Alcohol Use History: Occasional Past Drug Use History: Marijuana General Exam Limitations: no limitations General appearance: alert, in no apparent distress Head exam: Present: atraumatic, normocephalic, normal inspection Eye exam: Present: normal appearance, EOMI Neck exam: Present: normal inspection. Absent: meningismus Respiratory exam: Absent: respiratory distress Cardiovascular Exam: Present: regular rate Extremities exam: Present: full ROM Neurological exam: Present: alert, oriented X3 Psychiatric exam: Present: normal affect, normal mood Expanded Type of lesion: Present: laceration (4 cm laceration to the dorsal surface of the right hand) Course Vital Signs 10/24/24 10/24/24 16:56 17:43 Temperature 98 F 98 F Pulse Rate 97 91 Respiratory 20 18 Rate Blood Pressure 145/93 138/86 O2 Sat by Pulse 98 98 Oximetry Procedures - Laceration Laceration #1 Consent Obtained: verbal consent Indication: laceration Site: hand (R hand) Size (cm): 4 Description: linear Depth: simple, single layer Anesthetic Used: lidocaine 1%, without epi Anesthesia Technique: local infiltration Pre-repair: wound explored, irrigated extensively, deep structures intact Type of Sutures: nylon Size of Sutures: 4-0 Number of Sutures: 6 Technique: simple, interrupted Patient Tolerated Procedure: well, no complications Medical Decision Making - Medical Decision Making Was pt. sent in by a medical professional or institution (Dr. PA, [employer], urgent care, hospital, or longterm...) When possible be specific @ -No Did you speak to anyone other than the patient for history (EMS, parent, family, police, friend...)? What history was obtained from this source @ -No Did you review nursing and triage notes (agree or disagree)? Why? @ -I reviewed and agree with nursing and triage notes Were old charts reviewed (outside hosp., previous admission, EMS record, old EKG, old radiological studies, urgent care reports/EKG's, longterm records)? Report findings @ -No old charts were reviewed Differential Diagnosis (chest pain, altered mental status, abdominal pain women, abdominal pain men, vaginal bleeding, weakness, fever, dyspnea, syncope, headache, dizziness, GI bleed, back pain, seizure, CVA, palpatations, mental health, musculoskeletal)? @ -Differential includes uncomplicated laceration, vessel injury, nerve injury, not an all-inclusive list EKG interpreted by me (3pts min.). @ -As above X-rays interpreted by me (1pt min.). @ -None done CT interpreted by me (1pt min.). @ -None done U/S interpreted by me (1pt. min.). @ -None done What testing was considered but not performed or refused? (CT, X-rays, U/S, labs)? Why? @ -None What meds were considered but not given or refused? Why? @ -None Did you discuss the management of the patient with other professionals (professionals i.e. , PA, [employer], lab, RT, psych nurse, social insurance specialist, railroad brake operator, teacher, dental officer, ed case manager)? Give summary @ -No Was smoking cessation discussed for >3mins.? @ -No Was critical care preformed (if so, how long)? @ -No Were there social determinants of health that impacted care today? How? (Homelessness, low income, unemployed, alcoholism, drug addiction, transportation, low edu. Level, literacy, decrease access to med. care, correction, rehab)? @ -No Was there de-escalation of care discussed even if they declined (Discuss DNR or withdrawal of care, Hospice)? DNR status @ -No What co-morbidities impacted this encounter? (DM, HTN, Smoking, COPD, CAD, Cancer, CVA, ARF, Chemo, Hep., AIDS, mental health diagnosis, sleep apnea, morbid obesity)? @ -None Was patient admitted / discharged? Hospital course, mention meds given and route, prescriptions, significant lab abnormalities, going to OR and other pertinent info. @ -39-year-old male presenting with chief complaint of hand laceration. Patient is neurovascularly intact. Laceration is cleansed and anesthetized, see procedure note for details. Patient is started on Keflex. Educated on wound care and signs of infection. Follow-up with PCP. Report back to ER with any new or worsening symptoms. Discussed return parameters and answered all questions. Patient conveyed verbal understanding and agreed to the plan. I discussed this case in detail with my attending Dr. Cisse Undiagnosed new problem with uncertain prognosis? @ -No Drug Therapy requiring intensive monitoring for toxicity (Heparin, Nitro, Insulin, Cardizem)? @ -No Were any procedures done? @ -Laceration repair Diagnosis/symptom? @ -Hand laceration Acute, or Chronic, or Acute on Chronic? @ -Acute Uncomplicated (without systemic symptoms) or Complicated (systemic symptoms)? @ -Uncomplicated Side effects of treatment? @ -No Exacerbation, Progression, or Severe Exacerbation? @ -No Poses a threat to life or bodily function? How? (Chest pain, [place], [place], pneumonia, PE, COPD, DKA, ARF, appy, cholecystitis, CVA, Diverticulitis, Homicidal, Suicidal, threat to staff... and all critical care pts) @ -Low likelihood Disposition Clinical Impression: Laceration Disposition: HOME SELF-CARE Condition: Good Instructions (If sedation given, give patient instructions): Care For Your Stitches (ED), Laceration (ED) Additional Instructions: Follow-up with PCP. Report back to ER with any new or worsening symptoms. Keep the wound clean dry and covered. Wash regularly with soap and water. Avoid fully submerging the wound in water for prolonged periods of time. Monitor for signs of infection, including but not limited to redness, swelling, warmth, tenderness, discharge, fever. Sutures may be removed in 10 to 14 days Prescriptions: Cephalexin [Keflex] 500 mg PO Q12HR 7 Days #14 cap Is patient prescribed a controlled substance at d/c from ED?: No Referrals: None,Stated [Primary Care Provider] - 1-2 days Forms: Area PCPs Time of Disposition: 17:32
[2024-10-24] MEDS: DIPH,PERTUS(ACELL)TETVAC-LF 0.5 ML VIAL IM ONE (17:34)
[2024-10-24 17:45] VITALS: BP 138/86; PULSE 91; RESP 18
== END 2024-10-24 17:43 | disposition home or self-care (01) ==
LOC: EC 16:47
DX: S61.411A Laceration without foreign body of right hand, initial encounter (principal); F17.200 Nicotine dependence, unspecified, uncomplicated; Z88.5 Allergy status to narcotic agent; Z23 Encounter for immunization; W26.8XXA Contact with other sharp object(s), not elsewhere classified, initial encounter
CPT/HCPCS: 12002; 90471; 90715; 99282

== ENCOUNTER 2024-12-21 19:34 | Emergency (ER) | payer OTHER ==
[2024-12-21 19:42] VITALS: BP 147/102; PULSE 73; RESP 18; TEMP 97.4
[2024-12-21] MEDS: SODIUM CHLORIDE 0.9% 1,000 ML IV STA ×2 (19:50→20:51)
[2024-12-21] MEDS: HYDROmorphone 0.5 MG/0.5 ML SYRINGE IVP STA ×2 (19:50→20:04)
[2024-12-21] MEDS: DIPH,PERTUS(ACELL)TETVAC-LF 0.5 ML VIAL IM ONE (19:55)
[2024-12-21 20:03] LABS: Glucose,Whole Blood 94 mg/dL (70-110)
[2024-12-21 20:12] LABS: Basophils # (A) 0.06 10*3/uL (0.00-0.10); Basophils % (A) 0.4 %; Eosinophils # (A) 0.15 10*3/uL (0.04-0.35); Eosinophils % (A) 1.1 %; HCT 41.5 % (39.6-50.0); HGB 14.1 g/dL (13.0-17.0); Lymphocytes # (A) 4.26 10*3/uL (0.90-5.00); Lymphocytes % (A) 29.8 %; MCH 33.3 pg (27.0-32.0); MCV 97.9 fL (80.0-97.0); Monocytes # (A) 0.56 10*3/uL (0.20-1.00); Monocytes % (A) 3.9 %; Neutrophils # (A) 9.19 10*3/uL (1.80-7.70); Neutrophils % (A) 64.4 %; Platelet Count 349 10*3/uL (140-440); RBC 4.24 10*6/uL (4.40-5.60); RDW 13.7 % (11.5-14.5); WBC 14.28 10*3/uL (4.50-10.00)
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
[2024-12-21 20:23] LABS: ALT 191 U/L (4-49); AST 387 U/L (17-59); African American GFR (CKD) >90 (>60 ml/min/1.73 sqM); Albumin 3.9 g/dL (3.5-5.0); Alkaline Phosphatase 90 U/L (38-126); Anion Gap 6 mmol/L; Blood Urea Nitrogen 13 mg/dL (9-20); Calcium 8.6 mg/dL (8.4-10.2); Carbon Dioxide 28 mmol/L (22-30); Chloride 108 mmol/L (98-107); Glucose 107 mg/dL (74-99); Non-African American GFR(CKD) >90 (>60 ml/min/1.73 sqM); Potassium 3.9 mmol/L (3.5-5.1); Sodium 142 mmol/L (137-145); Total Bilirubin 0.8 mg/dL (0.2-1.3); Total Protein 6.4 g/dL (6.3-8.2)
[2024-12-21 20:25] LABS: Alcohol 235 mg/dL
[2024-12-21] MEDS: HYDROmorphone 1 MG/ML 1 ML SYRINGE IVP STA ×2 (20:44→21:06)
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
[2024-12-21 21:25] LABS: Partial Thromboplastin Time 20.2 sec (22.0-30.0); Prothrombin Time 11.3 sec (10.0-12.5)
[2024-12-21 21:48] LABS: Appearance,Urine Clear (Clear); Bilirubin,Urine Negative (Negative); Blood,Urine Large (Negative); Color,Urine Colorless; Glucose,Urine (UA) Negative (Negative); Hyaline Casts,Urine 3 /lpf (0-2); Ketones,Urine Negative (Negative); Leukocyte Esterase,Urine Negative (Negative); Mucus,Urine Rare /hpf; Nitrite,Urine Negative (Negative); Protein,Urine 1+ (Negative); RBC,Urine 50 /hpf (0-5); Specific Gravity,Urine 1.041 (1.001-1.035); Squamous Epithelial Cell,Urine <1 /hpf (0-4); Urobilinogen,Urine <2.0 mg/dL (<2.0); WBC,Urine 8 /hpf (0-5)
[2024-12-21 21:56] LABS: Amphetamine Screen,Urine Not Detected (NotDetected); Barbiturate Screen,Urine Not Detected (NotDetected); Benzodiazepines Screen,Urine Not Detected (NotDetected); Cocaine Screen,Urine Not Detected (NotDetected); Methadone Screen, Urine Not Detected (NotDetected); Opiate Screen,Urine Detected (NotDetected); Oxycodone Screen, Urine Not Detected (NotDetected); Phencyclidine Screen,Urine Not Detected (NotDetected); Tricyclic Antidepressant,Urine Not Detected (NotDetected); Urn Cannabinoid Scrn Detected (NotDetected)
== END 2024-12-21 22:04 | disposition other institution (70) ==
LOC: EC 19:34
DX: S52.022A Displaced fracture of olecranon process without intraarticular extension of left ulna, initial encounter for closed fracture (principal); F10.129 Alcohol abuse with intoxication, unspecified; F17.200 Nicotine dependence, unspecified, uncomplicated; Z88.5 Allergy status to narcotic agent; Z23 Encounter for immunization; V28.49XA Other motorcycle driver injured in noncollision transport accident in traffic accident, initial encounter; Y90.9 Presence of alcohol in blood, level not specified; Y93.55 Activity, bike riding
CPT/HCPCS: 36415; 93005; 86900; 86901; 80053; 83605; 85025; 85610; 85730; 86850; 81001; 80306; 80320; 72170; 73070; 71045; 72129; 72125; 72132; 70450; 71260; 74177; 90715; 99291; 96365; 96375; 96376; 96361; 90471; 29105; J0690; J1171 ×2; Q9967